=== PATIENT | male | born 1975 | race Caucasian/White ===

== ENCOUNTER 2017-05-12 20:46 | Emergency (ER) | payer SELFPAY ==
[~2017-05-12] VITALS: Ht 165.1 cm; Wt 100.2 kg
[~2017-05-12 20:46] MED LIST: AZITHROMYCIN250 MG1 PO; NOHOMEMEDS; PREDNISONE50 MG PO; VENTOLIN HFA18 GM IH
[2017-05-12 22:51] VITALS: BP 132/88
== END 2017-05-12 22:52 | disposition home or self-care (01) ==
LOC: EME 20:46 → EXP 20:46
DX: S93.601A Unspecified sprain of right foot, initial encounter (principal); W19.XXXA Unspecified fall, initial encounter; Y93.89 Activity, other specified; I10 Essential (primary) hypertension; F17.200 Nicotine dependence, unspecified, uncomplicated
CPT/HCPCS: 73630; 99281; 99284

== ENCOUNTER → 2018-01-20 | Outpatient (CLI) | payer OTHER ==
[~2018-01-20] MED LIST changes: +HYDROCODON-ACE1 EA11 PO; +ONDANSETRON HCL4 MG PO
== END | disposition home or self-care (01) ==
LOC: CDC 12:23
DX: Z01.810 Encounter for preprocedural cardiovascular examination (principal); K43.2 Incisional hernia without obstruction or gangrene
CPT/HCPCS: 93000

== ENCOUNTER 2018-01-27 06:53 | Day surgery (SDC) | payer OTHER ==
[~2018-01-27] VITALS: Ht 165.1 cm; Wt 98.9 kg
[2018-01-27 07:42] VITALS: BP 130/70
[2018-01-27] MEDS ORDERED: HYDROCODON-ACE1 EA11 PO (11:15)
[2018-01-27] MEDS ORDERED: COLACE100 MG PO (11:16)
[2018-01-27 12:59] VITALS: BP 120/65
[2018-01-27 14:03] VITALS: BP 120/70
[2018-01-27 15:02] VITALS: BP 118/77
== END 2018-01-27 15:03 | disposition home or self-care (01) ==
LOC: SDC 06:53
PROC: 0WUF4JZ Supplement Abdominal Wall with Synthetic Substitute, Percutaneous Endoscopic Approach (ICD-10-PCS; principal; 2018-01-27)
DX: K43.2 Incisional hernia without obstruction or gangrene (principal); X50.0XXA Overexertion from strenuous movement or load, initial encounter; Y99.0 Civilian activity done for income or pay; E66.9 Obesity, unspecified; Z68.36 Body mass index [BMI] 36.0-36.9, adult; M54.16 Radiculopathy, lumbar region; F17.200 Nicotine dependence, unspecified, uncomplicated
CPT/HCPCS: 88302; C1781; J0690; J1100; J1170; J1885; J2250; J2405; J2795; J3010; J3475; Q0175; S0020